=== PATIENT | male | born 1960 | race Caucasian/White ===

== ENCOUNTER 2016-08-20 12:56 | Outpatient (CLI) | payer BC | END 2016-08-20 12:57 | disposition home or self-care (01) | DX: E78.5 Hyperlipidemia, unspecified (principal); E55.9 Vitamin D deficiency, unspecified; Z12.5 Encounter for screening for malignant neoplasm of prostate ==

== ENCOUNTER 2016-08-25 11:03 | Outpatient (CLI) | payer BC | END 2016-08-25 11:04 | DX: E78.5 Hyperlipidemia, unspecified (principal); E55.9 Vitamin D deficiency, unspecified; Z12.5 Encounter for screening for malignant neoplasm of prostate; M79.1 Myalgia ==

== ENCOUNTER 2017-04-20 11:37 | Outpatient (CLI) | payer BC ==
[2017-04-20 18:22] LABS: BILIRUBIN,TOTAL 0.7 mg/dL (0.2-1.0); BUN - BLOOD UREA NITROGEN 18 mg/dL (6-20); CALCIUM 9.2 mg/dL (8.5-10.3); CARBON DIOXIDE - CO2 25 mmol/L (21-32); CHLORIDE 106 mmol/L (101-111); CHOL/HDL RATIO 4.7 (<5.0); CHOLESTEROL 142 mg/dL; CREATININE 0.9 mg/dL (0.6-1.2); GFR - MDRD 87 (>89); GLUCOSE 100 mg/dL (70-100); HDL CHOLESTEROL 30 mg/dL; LDL/HDL RATIO 2.5 (<3.6); POTASSIUM 4.2 mmol/L (3.5-5.0); SODIUM 139 mmol/L (135-145); TOTAL PROTEIN 7.4 g/dL (6.7-8.2); TRIGLYCERIDES 178 mg/dL; VLDL CHOLESTEROL 36 mg/dL
== END 2017-04-20 11:38 | disposition home or self-care (01) ==
LOC: LAB.F 11:37
PROVIDERS: ATTEND Physician Assistant Medical
DX: E78.00 Pure hypercholesterolemia, unspecified (principal); E55.9 Vitamin D deficiency, unspecified; Z51.81 Encounter for therapeutic drug level monitoring; Z79.899 Other long term (current) drug therapy
CPT/HCPCS: 36415; 80053; 80061; 82306

== ENCOUNTER 2017-04-22 16:40 | Outpatient (CLI) | payer BC ==
[2017-04-22 18:44] LABS: BILIRUBIN,URINE NEGATIVE (NEGATIVE); PH,URINE 5.5 PH (5.0-7.5)
[2017-04-22 19:00] LABS: UR CULTURE IF IND INDICATED
== END 2017-04-22 16:41 | disposition home or self-care (01) ==
LOC: LAB.R 16:40
PROVIDERS: ATTEND Physician Assistant Medical
DX: R31.9 Hematuria, unspecified (principal); N39.0 Urinary tract infection, site not specified
CPT/HCPCS: 81001; 87086

== ENCOUNTER 2017-04-26 12:47 | Outpatient (CLI) | payer BC | END 2017-04-26 12:48 | disposition home or self-care (01) | LOC: LAB.F 12:47 | PROVIDERS: ATTEND Physician Assistant Medical | DX: R31.9 Hematuria, unspecified (principal); N39.0 Urinary tract infection, site not specified; Z12.5 Encounter for screening for malignant neoplasm of prostate | CPT/HCPCS: 36415; 81001; 84153; 87086 ==

== ENCOUNTER 2017-05-05 19:15 | Outpatient (CLI) | payer BC ==
[2017-05-05 19:29] LABS: BILIRUBIN,URINE NEGATIVE (NEGATIVE); GLUCOSE, URINE (UA) NEGATIVE (NEGATIVE); KETONES,URINE (UA) NEGATIVE (NEGATIVE); LEUKOCYTE ESTERASE, URINE NEGATIVE (NEGATIVE); NITRITE,URINE NEGATIVE (NEGATIVE); OCCULT BLOOD,URINE NEGATIVE (NEGATIVE); PROTEIN,URINE NEGATIVE (NEGATIVE); UROBILINOGEN,URINE 0.2 (NORMAL) E.U./dL (NORMAL)
[2017-05-05 19:45] LABS: AMORPHOUS SEDIMENT,UR Marked /LPF; BACTERIA,URINE Rare /HPF (None Seen); CLARITY,URINE CLOUDY (CLEAR); MUCUS,URINE Marked Strands; RBC,URINE 0-5 /HPF (0-5); SQUAMOUS EPITHELIAL CELL,UR FEW Squamous (<= Few)
== END 2017-05-05 19:16 | disposition home or self-care (01) ==
LOC: LAB.R 19:15
PROVIDERS: ATTEND Physician Assistant Medical
DX: N39.0 Urinary tract infection, site not specified (principal)
CPT/HCPCS: 81001; 87086

== ENCOUNTER 2017-05-06 12:58 | Outpatient (CLI) | payer BC ==
[2017-05-06 18:57] LABS: PSA FREE 0.643 ng/mL (0.16-2.81)
[2017-05-06 18:58] LABS: PSA TOTAL 4.344 ng/mL (0.000-2.000)
== END 2017-05-06 12:59 | disposition home or self-care (01) ==
LOC: LAB.F 12:58
PROVIDERS: ATTEND Physician Assistant Medical
DX: N39.0 Urinary tract infection, site not specified (principal); R97.20 Elevated prostate specific antigen [PSA]
CPT/HCPCS: 36415; 84154

== ENCOUNTER 2018-04-05 16:13 | Outpatient (CLI) | payer BC ==
--- NOTE | 2018-04-05 17:07 | XRAY Report ---
Reason: BACK PAIN, NICOTINE ADDICTION, ABD BLOATING, NAUSE Procedure Date: 04/05/2018 Accession Number: [id number] / [id number] Procedure: XR - Chest 2 View X-Ray CPT Code: 92385 FULL RESULT: EXAM: CHEST RADIOGRAPHY EXAM DATE: 04/05/2018 04:39 PM. CLINICAL HISTORY: BACK PAIN, NICOTINE ADDICTION, abdomen BLOATING, NAUSEA. COMPARISON: CHEST 2 VIEW PA/LAT 11/26/2015 11:56 AM. TECHNIQUE: 2 views. FINDINGS: Lungs/Pleura: No focal opacities evident. No pleural effusion. No pneumothorax. Normal volumes. Mediastinum: Heart and mediastinal contours are unremarkable. Other: Mild vertebral body anterior wedging in the mid T-spine, appears chronic. IMPRESSION: No acute cardiopulmonary disease seen. RADIA
--- NOTE | 2018-04-05 17:32 | XRAY Report ---
Reason: BACK PAIN Procedure Date: 04/05/2018 Accession Number: [id number] / [id number] Procedure: XR - Thoracic Spine 3 View CPT Code: FULL RESULT: EXAM: THORACIC SPINE RADIOGRAPHY EXAM DATE: 04/05/2018 05:17 PM. CLINICAL HISTORY: BACK PAIN. COMPARISON: CHEST 2 VIEW 04/05/2018 4:19 PM CHEST 2 VIEW PA/LAT 11/26/2015 11:56 AM. TECHNIQUE: 3 views. FINDINGS: Alignment: Normal. No spondylolisthesis or scoliosis. Bones: Mild anterior wedging is noted at multiple contiguous levels in the mid thoracic spine. However, these appear chronic. No acute fracture identified. Disks: Multi level degenerative disk disease is noted. Most severe disease is at mid thoracic spine. Soft Tissues: Normal. The visualized lungs and cardiomediastinal silhouette are normal. IMPRESSION: 1. Multiple levels of anterior wedging in the mid thoracic spine unchanged since the prior radiograph. No acute fracture. 2. Mild multilevel degenerative disk disease noted. RADIA
--- NOTE | 2018-04-05 17:45 | XRAY Report ---
Reason: BACK PAIN, NICOTINE ADDICTION, ABD BLOATING, NAUSE Procedure Date: 04/05/2018 Accession Number: [id number] / [id number] Procedure: XR - Abdomen 2 View X-Ray CPT Code: 84552 FULL RESULT: EXAM: ABDOMEN RADIOGRAPHY EXAM DATE: 04/05/2018 05:17 PM. CLINICAL HISTORY: Abdominal bloating and nausea. COMPARISON: None. TECHNIQUE: 2 views. FINDINGS: Lung Bases: Unremarkable. Bowel Gas Pattern: Within normal limits. No dilated loops or abnormal fluid levels. Free Air: None. Other: None. IMPRESSION: Nonobstructive bowel gas pattern. RADIA The above findings were discussed with Michelle Healy by Dr. Marlyn Torres at 17:44 hrs on 04/05/18.
== END 2018-04-05 16:14 | disposition home or self-care (01) ==
LOC: DI 16:13
PROVIDERS: ATTEND Registered Nurse
DX: M51.34 Other intervertebral disc degeneration, thoracic region (principal); M48.54XA Collapsed vertebra, not elsewhere classified, thoracic region, initial encounter for fracture; R14.0 Abdominal distension (gaseous); R11.0 Nausea; R53.83 Other fatigue; F17.200 Nicotine dependence, unspecified, uncomplicated; R97.20 Elevated prostate specific antigen [PSA]
CPT/HCPCS: 36415; 71046; 72072; 74019; 80053; 80061; 83036; 84153; 84443; 85025; 86140

== ENCOUNTER 2018-04-05 17:29 | Outpatient (CLI) | payer BC ==
[2018-04-05 17:54] LABS: BASOPHILS # (AUTO) 0.1 10^3/uL (0.0-0.1); BASOPHILS % (AUTO) 0.8 %; EOSINOPHILS % (AUTO) 0.4 %; HGB - HEMOGLOBIN 16.2 g/dL (14.0-18.0); LYMPHOCYTES # (AUTO) 2.1 10^3/uL (1.5-3.5); MEAN CORPUSCULAR HGB CONC 34.1 g/dL (32.0-36.0); MEAN CORPUSCULAR VOLUME 90.9 fL (80.0-94.0); MONOCYTES # (AUTO) 0.7 10^3/uL (0.0-1.0); MONOCYTES % (AUTO) 6.9 %; NEUTROPHILS # (AUTO) 7.2 10^3/uL (1.5-6.6); NEUTROPHILS % (AUTO) 70.9 %; PLT - PLATELET COUNT 272 10^3/uL (130-450); RED BLOOD COUNT 5.22 10^6/uL (4.70-6.10); RED CELL DISTRIBUTION WIDTH 14.7 % (12.0-15.0); WHITE BLOOD COUNT 10.2 x10^3/uL (4.8-10.8)
[2018-04-05 18:36] LABS: ALBUMIN 4.6 g/dL (3.2-5.5); ALBUMIN/GLOBULIN RATIO 1.4 (1.0-2.2); ALKALINE PHOSPHATASE 101 IU/L (42-121); ALT ALANINE AMINOTRANSFERASE 40 IU/L (10-60); AST ASPARTATE AMINOTRANSFERASE 29 IU/L (10-42); BILIRUBIN,TOTAL 1.6 mg/dL (0.2-1.0); BUN - BLOOD UREA NITROGEN 17 mg/dL (6-20); CALCIUM 9.4 mg/dL (8.5-10.3); CARBON DIOXIDE - CO2 25 mmol/L (21-32); CHLORIDE 103 mmol/L (101-111); CHOL/HDL RATIO 4.2 (<5.0); CHOLESTEROL 176 mg/dL; CREATININE 0.9 mg/dL (0.6-1.2); GFR - MDRD 86 (>89); GLUCOSE 100 mg/dL (70-100); HDL CHOLESTEROL 42 mg/dL; LDL CHOLESTEROL,CALCULATED 95 mg/dL; LDL/HDL RATIO 2.3 (<3.6); SODIUM 136 mmol/L (135-145); VLDL CHOLESTEROL 39 mg/dL
[2018-04-05 18:42] LABS: CRP - C-REACTIVE PROTEIN < 1.0 mg/dL (0-1.0)
[2018-04-05 19:11] LABS: HB2 TOTAL 17.5 g/dL; HEMOGLOBIN A1C 0.71 g/dL; HEMOGLOBIN A1C % 5.9 % (4.6-6.2)
== END 2018-04-05 17:30 | disposition home or self-care (01) ==
LOC: LAB 17:29
PROVIDERS: ATTEND Registered Nurse
DX: R97.20 Elevated prostate specific antigen [PSA] (principal); R53.83 Other fatigue
CPT/HCPCS: 36415; 80053; 80061; 83036; 83721; 84153; 84443; 85025; 86140

== ENCOUNTER 2019-06-01 09:28 | Emergency (ER) | payer BC ==
--- NOTE | 2019-06-01 10:17 | ED Physician Documentation ---
PD HPI ABD PAIN - Stated complaint Stated Complaint: ABD/BACK PX - Chief complaint Chief Complaint: Abd Pain - History obtained from History obtained from: Patient - History of Present Illness Timing - onset: How many days ago (He states he has had difficulty with constipation for the past month with regular use of a stool softener daily but still only small stools at a time. He states he been having some abdominal bloating and distention and some crampy pains in the lower abdomen the last few days radiating into the back. He does have some back pain as well which increases on range of motion. He denies any decrease sensation in the rectal or bladder area penal area. He denies any weakness of the legs. He denies any swelling of the legs. He had increased pain significantly today in the lower abdomen and is here for evaluation. He had had just a small amount of watery stool out but still has a feeling of rectal urgency.) Quality: Cramping, Aching, Pain Location: Periumbilical, LLQ Radiation: Lower back Improved by: Laying still Worsened by: Moving, Palpation Associated symptoms: Nausea, Constipation. No: Fever, Vomiting, Diarrhea, Melena Similar symptoms before: Has not had sx before (History of constipation at times but has not had pain like this from it previously.) Recently seen: Not recently seen Review of Systems Constitutional: denies: Fever, Chills Nose: denies: Rhinorrhea / runny nose, Congestion Throat: denies: Sore throat Cardiac: denies: Chest pain / pressure, Palpitations Respiratory: denies: Cough GI: reports: Abdominal Pain, Nausea, Constipation. denies: Vomiting, Diarrhea, Bloody / black stool : denies: Dysuria, Frequency, Unable to Void, Incontinent Skin: denies: Rash, Lesions Musculoskeletal: reports: Back pain (lower back, worse with movement.). denies: Neck pain Neurologic: denies: Focal weakness, Numbness PD PAST MEDICAL HISTORY - Past Medical History Cardiovascular: High cholesterol Neuro: None Endocrine/Autoimmune: None Musculoskeletal: Chronic back pain - Past Surgical History Past Surgical History: No - Present Medications Home Medications: Ambulatory Orders Medication Instructions Recorded Confirmed Atorvastatin Calcium [Lipitor] 40 mg DAILY 11/07/15 11/07/15 Cyclobenzaprine [Flexeril] 10 mg PO TID PRN #20 tablet 11/07/15 HYDROcod/ACETAM 5/325 [[place] 5/325] 1 - 2 ea PO Q6H PRN #20 tablet 11/07/15 Hydrocodone/Acetaminophen [[place] 1 each PO Q6H PRN #12 tablet 06/01/19 5-325 Tablet] Naproxen 500 mg PO BID #20 tablet 06/01/19 Polyethylene Glycol 3350 [Miralax] 17 gm PO DAILY PRN #1 bottle 06/01/19 Tizanidine HCl 4 mg PO TID PRN #25 capsule 06/01/19 - Allergies Allergies/Adverse Reactions: Allergies Allergy/AdvReac Type Severity Reaction Status Date / Time No Known Drug Allergies Allergy Verified 06/01/19 09:34 - Living Situation Living Situation: reports: Alone Living Arrangement: reports: At home - Social History Does the pt smoke?: Yes Smoking Status: Current every day smoker Does the pt drink ETOH?: No Does the pt have substance abuse?: No - Immunizations Immunizations are current?: Yes PD ED PE NORMAL - Vitals Vital signs reviewed: Yes - General General: Alert and oriented X 3, Well developed/nourished, Other (Appears uncomfortable. He does have abdominal distention mostly in the lower abdomen. General tenderness in the lower abdomen without any percussion or rebound. The epigastric area and right upper quadrant themselves are not tender. Bowel sounds are present and diminished. Rectal exam was with out any impaction at the rectal vault.) - HEENT HEENT: Pharynx benign - Neck Neck: Supple, no meningeal sign, No adenopathy - Cardiac Cardiac: RRR, No murmur - Respiratory Respiratory: Clear bilaterally - Abdomen Abdomen: No organomegaly. No: Normal bowel sounds - Male Male : Deferred - Rectal Rectal: Other (No impaction noted. Stool is brown colored without blood nor melena. ) - Back Back: No CVA TTP, No spinal TTP - Derm Derm: Normal color, Warm and dry - Neuro Neuro: Alert and oriented X 3, No motor deficit, No sensory deficit (He has normal sensation in both lower extremities to touch and pinprick. Normal knee reflexes. Normal sensation is noted at the rectal area with good rectal tone.) Results - Vitals Vitals: Vital Signs - 24 hr 06/01/19 06/01/19 06/01/19 09:32 11:20 13:00 Temperature 36.1 C L 36.5 C Heart Rate 88 73 75 Respiratory 16 19 16 Rate Blood Pressure 149/100 H 140/88 H 149/93 H O2 Saturation 100 97 100 06/01/19 15:07 Temperature Heart Rate 62 Respiratory 20 Rate Blood Pressure 141/93 H O2 Saturation 98 Oxygen O2 Source Room air - Labs Labs: Laboratory Tests 06/01/19 06/01/19 06/01/19 10:05 10:05 10:50 WBC 7.2 RBC 5.31 Hgb 16.8 Hct 48.0 MCV 90.4 MCH 31.6 H MCHC 35.0 RDW 14.0 Plt Count 268 MPV 8.4 Neut # (Auto) 4.6 Lymph # (Auto) 1.9 [place] # (Auto) 0.5 Eos # (Auto) 0.1 Baso # (Auto) 0.0 Absolute Nucleated RBC 0.00 Nucleated RBC % 0.0 Sodium 135 Potassium 3.9 Chloride 101 Carbon Dioxide 20 L Anion Gap 14.0 H BUN 18 Creatinine 1.2 Estimated GFR (MDRD) 62 L Glucose 109 H Lactic Acid Calcium 9.7 Magnesium 1.9 Total Bilirubin 1.7 H AST 38 ALT 72 H Alkaline Phosphatase 83 Total Protein 7.7 Albumin 4.3 Globulin 3.4 Albumin/Globulin Ratio 1.3 Lipase 42 Urine Color Urine Clarity Urine pH Ur Specific [place] Urine Protein Urine Glucose (UA) Urine Ketones Urine Occult Blood Urine Nitrite Urine Bilirubin Urine Urobilinogen Ur Leukocyte Esterase Ur Microscopic Review Urine Culture Comments 06/01/19 06/01/19 11:24 11:32 WBC RBC Hgb Hct MCV MCH MCHC RDW Plt Count MPV Neut # (Auto) Lymph # (Auto) [place] # (Auto) Eos # (Auto) Baso # (Auto) Absolute Nucleated RBC Nucleated RBC % Sodium Potassium Chloride Carbon Dioxide Anion Gap BUN Creatinine Estimated GFR (MDRD) Glucose Lactic Acid 1.7 Calcium Magnesium Total Bilirubin AST ALT Alkaline Phosphatase Total Protein Albumin Globulin Albumin/Globulin Ratio Lipase Urine Color YELLOW Urine Clarity CLEAR Urine pH 6.0 Ur Specific [place] 1.025 Urine Protein NEGATIVE Urine Glucose (UA) NEGATIVE Urine Ketones 15 H Urine Occult Blood TRACE-LYSE Urine Nitrite NEGATIVE Urine Bilirubin NEGATIVE Urine Urobilinogen 0.2 (NORMAL) Ur Leukocyte Esterase NEGATIVE Ur Microscopic Review NOT INDICATED Urine Culture Comments NOT INDICATED - Rads (name of study) abd CT Radiology: Prelim report reviewed (No acute abnormality is seen on the CT scan to account for his pain.), See rad report PD MEDICAL DECISION MAKING - ED course Complexity details: reviewed results (No obvious acute process is seen on CT scan and his labs are normal with just an elevated white count. No obvious source of infection. He had does have a history of constipation clinically though the CT scan does not look like a excessive amount of stool. We can give a enema as well as some MiraLAX for him. His pain is improved with some IV fluids and medications. I do not see a serious cause for his pain and distention and will presume it related to some obstipation given the normal testing at this point. He has been having back pain but there is no redness to it. He has normal rectal tone and normal sensation in the saddle area as well as the lower extremities.), re-evaluated patient (No significant abnormalities found on labs or CT scan. We will send him home with some anti-inflammatories and can use MiraLAX every 1 or 2 hours through the day until stool output. I would assume his cramps and distention will improve with that as there is no other obvious cause for it at this time. Ibuprofen and muscle relaxant for the back pain as it does seem to be some musculoskeletal component for the back. There is no fever, neurologic deficit or decreased sensation notable so I do not feel there is an issue with cord compression.), considered differential (Consider processes such as diverticulitis or appendicitis or bowel obstruction perforation or vascular problem. Will get labs urine test and CT scan. Meanwhile we will give IV fluids and antibiotics. Rectal exam did not show any significant impaction. We can try an enema regarding the constipation.), d/w patient Departure - Departure Disposition: Home, Self Care Clinical Impression: Lower abdominal pain Lower back pain Qualifiers: Chronicity: acute Back pain laterality: unspecified Sciatica presence: without sciatica Qualified Code(s): M54.5 - Low back pain Constipation Qualifiers: Constipation type: unspecified constipation type Qualified Code(s): K59.00 - Constipation, unspecified Condition: Stable Record reviewed to determine appropriate education?: Yes Instructions: ED Low Back Pain Injury, ED Constipation Follow-Up: Michelle Healy ARNP [Primary Care Provider] - Prescriptions: Hydrocodone/Acetaminophen [[place] 5-325 Tablet] 1 each PO Q6H PRN #12 tablet PRN Reason: Pain Naproxen 500 mg PO BID #20 tablet Polyethylene Glycol 3350 [Miralax] 17 gm PO DAILY PRN #1 bottle PRN Reason: Constipation Tizanidine HCl 4 mg PO TID PRN #25 capsule PRN Reason: Spasms Comments: No signs of significant cause or dangerous cause for your pains. There may be some musculoskeletal pain in the back. Presume the abdominal pain and distention are from some constipation effect. Stay well-hydrated. Use the MiraLAX 17 g dose every 1 or 2 hours through the day until you are having a good stool output and then use it daily after that. Naproxen anti-inflammatory twice daily for the next 7 to 10 days for pain and inflammation. Add tizanidine muscle relaxant as needed for back pain. Add Tylenol to this to help with the pain as well. These should not be constipating. If still needed, add hydrocodone for pain. The concern is this would would add to some constipation so would be added just if needed. Follow-up with your primary care next week, call for an appointment. Follow-up with here or return here if worsening or not improved over the next few days. Discharge Date/Time: 06/01/19 15:26
[2019-06-01 10:21] LABS: BASOPHILS % (AUTO) 0.6 %; EOSINOPHILS # (AUTO) 0.1 10^3/uL (0.0-0.7); EOSINOPHILS % (AUTO) 0.8 %; HGB - HEMOGLOBIN 16.8 g/dL (14.0-18.0); LYMPHOCYTES # (AUTO) 1.9 10^3/uL (1.5-3.5); LYMPHOCYTES % (AUTO) 26.4 %; MEAN CORPUSCULAR HEMOGLOBIN 31.6 pg (27.0-31.0); MEAN CORPUSCULAR VOLUME 90.4 fL (80.0-94.0); MEAN PLATELET VOLUME 8.4 fL (7.4-11.4); MONOCYTES # (AUTO) 0.5 10^3/uL (0.0-1.0); MONOCYTES % (AUTO) 7.3 %; NEUTROPHILS # (AUTO) 4.6 10^3/uL (1.5-6.6); NEUTROPHILS % (AUTO) 64.6 %; PLT - PLATELET COUNT 268 10^3/uL (130-450); RED BLOOD COUNT 5.31 10^6/uL (4.70-6.10); WHITE BLOOD COUNT 7.2 x10^3/uL (4.8-10.8)
[2019-06-01 10:28] LABS: ALBUMIN 4.3 g/dL (3.2-5.5); ALBUMIN/GLOBULIN RATIO 1.3 (1.0-2.2); BILIRUBIN,TOTAL 1.7 mg/dL (0.2-1.0); CALCIUM 9.7 mg/dL (8.5-10.3); CREATININE 1.2 mg/dL (0.6-1.2); TOTAL PROTEIN 7.7 g/dL (6.7-8.2)
[2019-06-01] MEDS ORDERED: SODIUM CHLORIDE 0.9% 1,000 ML IV ONE (10:48)
[2019-06-01] MEDS ORDERED: HYDROmorphone 1 MG/ML CARPUJECT IVP STA (10:48)
[2019-06-01] MEDS ORDERED: ONDANSETRON 4 MG/2 ML VIAL IVP STA (10:48)
[2019-06-01] MEDS ORDERED: ACETAMINOPHEN 1,000 MG/100 ML 100 ML IV STA (10:50)
[2019-06-01] MEDS ORDERED: IOVERSOL 320 100 ML VIAL IVP ONE ×2 (11:16→12:29)
[2019-06-01 11:29] LABS: BILIRUBIN,URINE NEGATIVE (NEGATIVE); GLUCOSE, URINE (UA) NEGATIVE (NEGATIVE); KETONES,URINE (UA) 15 mg/dL (NEGATIVE); LEUKOCYTE ESTERASE, URINE NEGATIVE (NEGATIVE); NITRITE,URINE NEGATIVE (NEGATIVE); OCCULT BLOOD,URINE TRACE-LYSE (NEGATIVE); PROTEIN,URINE NEGATIVE (NEGATIVE); UROBILINOGEN,URINE 0.2 (NORMAL) E.U./dL (NORMAL)
[2019-06-01 11:31] LABS: CLARITY,URINE CLEAR (CLEAR)
--- NOTE | 2019-06-01 12:27 | CT Report ---
Reason: lower abd pain and distension Procedure Date: 06/01/2019 Accession Number: [id number] / [id number] Procedure: CT - Abdomen/Pelvis W CPT Code: Final Report FULL RESULT: EXAM: CT ABDOMEN AND PELVIS EXAM DATE: 06/01/2019 12:03 PM. CLINICAL HISTORY: Lower abdominal pain and distension. COMPARISONS: None. TECHNIQUE: Routine helical CT imaging was performed through the abdomen and pelvis. IV contrast: Optiray 320 90 mL. Enteric contrast: No. Reconstructions: Coronal and sagittal. In accordance with CT protocol optimization, one or more of the following dose reduction techniques were utilized for this exam: automated exposure control, adjustment of mA and/or KV based on patient size, or use of iterative reconstructive technique. FINDINGS: Lung Bases: Minimal posterior bibasilar subpleural atelectasis. Heart size normal. Tiny hiatal hernia. Liver: Normal. No masses. Gallbladder/Bile Ducts: Along the fundus of the gallbladder is a focus of round thickening and nodularity typically seen with adenomyomatosis. Remainder of the gallbladder is unremarkable. No biliary ductal dilatation. Spleen: Normal. Pancreas: Extensive irregular calcifications are seen in the pancreatic head and uncinate process. No pancreatic ductal dilatation. No peripancreatic edema or fluid collections. Adrenal Glands: Normal. Kidneys: Normal. No masses or hydronephrosis. Peritoneal Cavity/Bowel: Stomach is mildly distended and unremarkable. No small bowel obstruction or small bowel wall thickening. Small fatty umbilical hernia. No free air. No free fluid. No enlarged retroperitoneal or mesenteric lymph nodes. Small volume of stool in the colon. Diverticula are seen in the distal colon. No evidence of diverticulitis. The appendix is well visualized and normal. Pelvic Organs: Urinary bladder is mildly distended . There is an area of asymmetric thickening along the left posterior urinary bladder measuring up to 13 mm which is asymmetric in comparison to the right by the left UVJ. Prostate gland is mildly enlarged. No pelvic adenopathy. No pelvic free fluid. Vasculature: Calcified and noncalcified atheromatous plaque is seen in the abdominal aorta. SMA and celiac and MURIEL are patent. No occlusion. No aneurysm. Bones: No acute osseous abnormalities. Mild degenerative changes at L5-S1. Lumbar facet arthropathy. Other: None. IMPRESSION: 1. Normal appendix. 2. Distal colonic diverticulosis. No diverticulitis. No bowel obstruction. 3. No nephrolithiasis. No hydronephrosis. 4. Asymmetric thickening along the posterior inferior left urinary bladder measuring up to 13 mm by the left UVJ. Findings may resent a focal bladder lesion. Cystoscopy recommended. 5. Pancreatic head and uncinate process calcifications consistent with changes related to chronic pancreatitis. No CT evidence of acute pancreatitis. 6. Atherosclerosis. RADIA
[2019-06-01] MEDS ORDERED: MINERAL OIL ENEMA 133 ML BOTTLE RC STA (13:09)
[2019-06-01] MEDS ORDERED: polyethylene glycoL 3350 17 GM PACKET PO STA (13:09)
[2019-06-01] MEDS ORDERED: KETOROLAC 15 MG/ML VIAL IVP STA (13:13)
[2019-06-01 15:07] VITALS: BP 141/93
== END 2019-06-01 15:26 | disposition home or self-care (01) ==
LOC: ED 09:28
DX: R10.30 Lower abdominal pain, unspecified (principal); K59.00 Constipation, unspecified; M54.5 Low back pain; R93.41 Abnormal radiologic findings on diagnostic imaging of renal pelvis, ureter, or bladder; F17.200 Nicotine dependence, unspecified, uncomplicated
CPT/HCPCS: 36415; 51798; 74177; 80053; 81003; 83605; 83690; 83735; 85025; 96365; 96375; 99284; 99285; A9270; J0131; J1170; Q9967; 81001; 87086

== ENCOUNTER 2019-06-06 12:55 | Outpatient (CLI) | payer BC ==
[2019-06-06 18:44] LABS: ALBUMIN 4.4 g/dL (3.2-5.5); ALBUMIN/GLOBULIN RATIO 1.7 (1.0-2.2); ALKALINE PHOSPHATASE 74 IU/L (42-121); ALT ALANINE AMINOTRANSFERASE 41 IU/L (10-60); AST ASPARTATE AMINOTRANSFERASE 29 IU/L (10-42); BUN - BLOOD UREA NITROGEN 20 mg/dL (6-20); CALCIUM 9.2 mg/dL (8.5-10.3); CARBON DIOXIDE - CO2 25 mmol/L (21-32); CHLORIDE 104 mmol/L (101-111); CHOL/HDL RATIO 6.4 (<5.0); CHOLESTEROL 235 mg/dL; CREATININE 1.1 mg/dL (0.6-1.2); GFR - MDRD 68 (>89); GLUCOSE 94 mg/dL (70-100); HDL CHOLESTEROL 37 mg/dL; LDL CHOLESTEROL,CALCULATED 138 mg/dL; LDL/HDL RATIO 3.7 (<3.6); SODIUM 136 mmol/L (135-145); VLDL CHOLESTEROL 60 mg/dL
== END 2019-06-06 12:56 | disposition home or self-care (01) ==
LOC: LAB.S 12:55
PROVIDERS: ATTEND Internal Medicine
DX: E78.5 Hyperlipidemia, unspecified (principal)
CPT/HCPCS: 36415; 80053; 80061; 83721

== ENCOUNTER 2022-06-09 16:39 | Emergency (ER) | payer BC ==
[2022-06-09 16:53] VITALS: BP 161/95
[2022-06-09 17:13] LABS: BASOPHILS # (AUTO) 0.1 10^3/uL (0.0-0.1); BASOPHILS % (AUTO) 0.4 %; EOSINOPHILS # (AUTO) 0.1 10^3/uL (0.0-0.7); EOSINOPHILS % (AUTO) 0.9 %; HCT - HEMATOCRIT 47.9 % (42.0-52.0); LYMPHOCYTES # (AUTO) 1.5 10^3/uL (1.5-3.5); LYMPHOCYTES % (AUTO) 13.6 %; MEAN CORPUSCULAR HEMOGLOBIN 30.3 pg (27.0-31.0); MEAN CORPUSCULAR HGB CONC 33.4 g/dL (32.0-36.0); MEAN CORPUSCULAR VOLUME 90.7 fL (80.0-94.0); MONOCYTES # (AUTO) 0.7 10^3/uL (0.0-1.0); MONOCYTES % (AUTO) 6.3 %; NEUTROPHILS # (AUTO) 8.8 10^3/uL (1.5-6.6); NEUTROPHILS % (AUTO) 78.5 %; PLT - PLATELET COUNT 243 10^3/uL (130-450); RED BLOOD COUNT 5.28 10^6/uL (4.70-6.10); RED CELL DISTRIBUTION WIDTH 14.3 % (12.0-15.0); WHITE BLOOD COUNT 11.2 x10^3/uL (4.8-10.8)
--- NOTE | 2022-06-09 17:13 | ED Physician Documentation ---
History of Present Illness - Stated complaint Stated Complaint: RT LEG PX - Chief complaint Chief Complaint: Ext Problem - Additonal information Additional information: 61-year-old male presents emergency department for evaluation of acute onset right lower extremity leg pain and cyanosis. He reports that for 6 months he has had pain in the bottom of his foot that he attributed to Planter fasciitis. About 230 he developed sudden sharp searing pain that radiates up towards his thigh. His foot became cold. His foot also became dusky. He lost pulses in this foot but not sensation. He denies taking any prescribed medications. He is 1/2 pack/day smoker. He is denying chest pain or shortness of air. No abdominal pain. No melena or hematochezia Review of Systems Cardiac: reports: Other (Loss of pulses right foot) Skin: reports: Reviewed and negative Musculoskeletal: reports: Extremity pain PD PAST MEDICAL HISTORY - Past Medical History Cardiovascular: High cholesterol Neuro: None Endocrine/Autoimmune: None Musculoskeletal: Chronic back pain - Past Surgical History Past Surgical History: No - Present Medications Home Medications: Ambulatory Orders Medication Instructions Recorded Confirmed Atorvastatin Calcium [Lipitor] 40 mg DAILY 11/07/15 11/07/15 Cyclobenzaprine [Flexeril] 10 mg PO TID PRN #20 tablet 11/07/15 HYDROcod/ACETAM 5/325 [[place] 5/325] 1 - 2 ea PO Q6H PRN #20 tablet 11/07/15 Hydrocodone/Acetaminophen [[place] 1 each PO Q6H PRN #12 tablet 06/01/19 5-325 Tablet] Naproxen 500 mg PO BID #20 tablet 06/01/19 Tizanidine HCl 4 mg PO TID PRN #25 capsule 06/01/19 polyethylene glycoL 3350 [Miralax] 17 gm PO DAILY PRN #1 bottle 06/01/19 - Allergies Allergies/Adverse Reactions: Allergies Allergy/AdvReac Type Severity Reaction Status Date / Time No Known Drug Allergies Allergy Verified 06/09/22 16:53 - Social History Does the pt smoke?: Yes Smoking Status: Current every day smoker Does the pt drink ETOH?: No Does the pt have substance abuse?: No - Immunizations Immunizations are current?: Yes PD ED PE NORMAL - General General: Alert and oriented X 3, No acute distress, Well developed/nourished - Cardiac Cardiac: RRR (NSR on monitor), No murmur, Other (2+ femoral pulses bilaterally. Right foot appears dusky and cyanotic. It is cold to touch at the level of the ankle distally. Unable to palpate or obtain Doppler pulses in the DP or posterior tibial region. Patient has normal sensation and movement of this foot.). No: Strong equal pulses (Left leg with 2+ femoral and 2+ DP pulse. Warm extremity. Normal movement. Normal sensation.) - Respiratory Respiratory: No respiratory distress, Clear bilaterally - Abdomen Abdomen: Normal bowel sounds, Soft Results - Vitals Vitals: Vital Signs - 24 hr 06/09/22 06/09/22 16:47 17:20 Temperature 37 C Heart Rate 98 92 Respiratory 17 24 Rate Blood Pressure 161/95 H O2 Saturation 99 96 Oxygen O2 Source Room air - EKG (time done) 1823 Rate: Rate (enter#) (92) Rhythm: NSR [place]: Normal Intervals: Normal LA QRS: Normal Ischemia: Normal ST segments Compare to prior EKG: Old EKG unavailable Computer interpretation: Agree with computer - Labs Labs: Laboratory Tests 06/09/22 06/09/22 06/09/22 17:06 17:06 17:06 WBC 11.2 H RBC 5.28 Hgb 16.0 Hct 47.9 MCV 90.7 MCH 30.3 MCHC 33.4 RDW 14.3 Plt Count 243 MPV 8.0 Neut # (Auto) 8.8 H Lymph # (Auto) 1.5 [place] # (Auto) 0.7 Eos # (Auto) 0.1 Baso # (Auto) 0.1 Absolute Nucleated RBC 0.00 Nucleated RBC % 0.0 PT 11.1 INR 1.0 APTT 28.4 Sodium 137 Potassium 4.0 Chloride 101 Carbon Dioxide 20 L Anion Gap 16.0 H BUN 31 H Creatinine 1.2 Estimated GFR (MDRD) 61 L Glucose 119 H Calcium 10.3 Total Bilirubin 1.1 H AST 22 ALT 30 Alkaline Phosphatase 83 Total Protein 7.6 Albumin 4.2 Globulin 3.4 Albumin/Globulin Ratio 1.2 Lipase 41 SARS-CoV-2 (PCR) 06/09/22 17:06 WBC RBC Hgb Hct MCV MCH MCHC RDW Plt Count MPV Neut # (Auto) Lymph # (Auto) [place] # (Auto) Eos # (Auto) Baso # (Auto) Absolute Nucleated RBC Nucleated RBC % PT INR APTT Sodium Potassium Chloride Carbon Dioxide Anion Gap BUN Creatinine Estimated GFR (MDRD) Glucose Calcium Total Bilirubin AST ALT Alkaline Phosphatase Total Protein Albumin Globulin Albumin/Globulin Ratio Lipase SARS-CoV-2 (PCR) NOT DETECTED - Rads (name of study) Arterial US right leg Radiology: See rad report, Other (Per neurodiagnostic technologist: Occlusion of the common femoral artery.) PD Medical Decision Making - ED course Complexity details: considered differential, d/w patient ED course: 61-year-old male presents to the emergency department for evaluation of acute right lower leg ischemia. He states that at 230 this afternoon he developed sharp pain from the bottom of his foot radiating up towards the thigh. He noticed that the foot had become cold and dusky/cyanotic. On presentation he does have bilateral femoral pulses, however there are NO doppler pulse in the RIGHT foot at either the DP or posterior tibial site. He does have normal sensation and movement, though this foot is cold and cyanotic. unremarkable exam of the LEFT leg with is normal in color, warm and well perfused. I initially ordered CBC, electrolytes, lactate as well as PTT PT and INR. Per my interpretation no acute worrisome findings were seen. Given the concern for acute ischemia heparin infusion with bolus was also initiated. A stat arterial ultrasound was ordered for evaluation of the right lower extremity 1814: I spoken with Dr. Somers vascular surgeon at [facility]. We discussed this case. 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 This finding was discussed with Dr. Somers. Imaging is being pushed to [facility]. However he does accept the patient in transfer. Given the acute limb i schemia he will be flown via life flight. COVID screen is pending. Patient is in agreement for transport. Appropriate [employer] paperwork completed. - Critical Care Time(min): 60 Time Includes: Direct patient care, Reassess patient, Medical consult Data interpretation: Labs Departure - Departure Disposition: 02 Transfer Acute Care Hosp Clinical Impression: Occlusion of right femoral artery
[2022-06-09 17:19] LABS: PT - PROTHROMBIN TIME 11.1 secs (9.9-12.6)
[2022-06-09] MEDS ORDERED: HEPARIN 5,000 UNIT/ML VIAL ONE (17:24)
[2022-06-09 17:26] LABS: ALBUMIN 4.2 g/dL (3.2-5.5); ALBUMIN/GLOBULIN RATIO 1.2 (1.0-2.2); BILIRUBIN,TOTAL 1.1 mg/dL (0.2-1.0); CALCIUM 10.3 mg/dL (8.5-10.3); CREATININE 1.2 mg/dL (0.6-1.2); PARTIAL THROMBOPLASTIN TIME 28.4 secs (24.9-33.3); TOTAL PROTEIN 7.6 g/dL (6.7-8.2)
[2022-06-09] MEDS ORDERED: HYDROmorphone 1 MG/ML CARPUJECT IVP STA (17:51)
[2022-06-09] MEDS ORDERED: SODIUM CHLORIDE 0.9% 1,000 ML IV STA (17:51)
[2022-06-09] MEDS ORDERED: HEPARIN 25000UNITS/500ML (D5W) 25,000 UNIT/500 ML BAG IV SCH (18:00)
--- NOTE | 2022-06-09 18:49 | Ultrasound Report ---
PROCEDURE: Duplex Lwr Ext Arterial RT INDICATIONS: acute occlusion TECHNIQUE: Color and pulse Doppler interrogation was performed of the right lower extremity arterial system, wit h image documentation. COMPARISON: None available FINDINGS: Common femoral artery: Occluded. Deep femoral artery: 15 cm/sec, with monophasic flow. Proximal superficial femoral artery: 31 cm/sec, with monophasic flow. Mid superficial femoral artery: 17 cm/sec, with monophasic flow. Distal superficial femoral artery: 22 cm/sec, with monophasic flow. Popliteal artery: 16 cm/sec, with monophasic flow. Posterior tibial artery: 11 cm/sec, with modified flow. Anterior tibial artery/dorsalis pedis: 10 cm/sec, with monophasic flow. The anterior tibial artery is not seen distally. Tubbs-scale imaging description: Soft thrombus can be seen within the right common femoral artery. At herosclerotic plaque can be seen throughout the superficial femoral artery and popliteal artery. IMPRESSION: Conclusion within the common femoral artery, with soft plaque seen. Poor flow with monophasic waveforms can be seen throughout the remainder of the right lower extremity . Reviewed by: Rahul Montano MD on 06/09/2022 5:48 PM [place] Approved by: Rahul Montano MD on 06/09/2022 5:48 PM [facility] Station ID: [id number]
== END 2022-06-09 19:33 | disposition short-term general hospital (02) ==
LOC: ED 16:39
DX: I70.201 Unspecified atherosclerosis of native arteries of extremities, right leg (principal); F17.200 Nicotine dependence, unspecified, uncomplicated; Z20.822 Contact with and (suspected) exposure to COVID-19
CPT/HCPCS: 36415; 80053; 83690; 85025; 85610; 85730; 87635; 93005; 93926; 96361; 96374; 96375; 99285; 99291; J1170

== ENCOUNTER 2022-06-14 13:37 | Outpatient (CLI) | payer BC | END 2022-06-14 13:38 | disposition home or self-care (01) | LOC: LAB.S 13:37 | PROVIDERS: ATTEND Registered Nurse | DX: I74.3 Embolism and thrombosis of arteries of the lower extremities (principal); Z79.01 Long term (current) use of anticoagulants | CPT/HCPCS: 36416; 85610 ==

== ENCOUNTER 2022-07-07 12:14 | Outpatient (CLI) | payer BC ==
[2022-07-07] MEDS ORDERED: iohexoL-300 100 ML VIAL ONE (12:48)
[2022-07-07] MEDS: DIATRIZOATE MEGLU/DIATRIZO SOD 30 ML BOTTLE PO ONE (15:08)
[2022-07-07] MEDS: iohexoL-300 100 ML VIAL IVP ONE (15:08)
--- NOTE | 2022-07-07 17:28 | CT Report ---
PROCEDURE: ABDOMEN/PELVIS W INDICATIONS: ABD DISTENSION CONTRAST: 100ml OMnipaque 300 TECHNIQUE: After the administration of contrast, 5 mm thick sections acquired from the diaphragms to the symphys is. 5 mm thick coronal and sagittal reformats were acquired. For radiation dose reduction, the foll owing was used: automated exposure control, adjustment of mA and/or kV according to patient size. COMPARISON: CTA abdomen and pelvis dated 06/09/2022. CT IVP dated 06/10/2022. FINDINGS: Image quality: Excellent. ABDOMEN: Lung bases: Lung bases are clear. Heart size is normal. Solid organs: Liver and spleen are normal in size and enhancement. Gallbladder is normal. Biliary system is non dilated. There are calcifications of the head of the pancreas consistent with remote pa ncreatitis. No adrenal nodules. Kidneys demonstrate normal size and enhancement, without hydronephr osis. Peritoneum and bowel: Bowel loops demonstrate normal wall thickness and caliber. There is diverticu losis without evidence of diverticulitis. No free fluid or air. Nodes and vessels: No retroperitoneal or mesenteric adenopathy by size criteria. Aorta and inferior vena cava are normal in size. The aorta has atherosclerotic calcifications with eccentric mural thr ombus distally. There is a 2.5 x 1.4 cm enhancing mass overlying the left ureteral orifice. Miscellaneous: No ventral hernias. PELVIS: Genitourinary: Bladder wall thickness is normal. Miscellaneous: No inguinal hernias or adenopathy. Bones: No suspicious bony lesions. No vertebral body compression fractures. IMPRESSION: 1. 2.5 x 1.4 cm enhancing mass overlying the left ureteral orifice consistent with bladder neoplasm. This appears similar compared to prior CT on 06/10/2022. 2. No acute abnormality of the abdomen or pelvis. 3. No adenopathy or other evidence of metastatic disease. Reviewed by: Harpreet Diamond on 07/07/2022 4:27 PM [facility] Approved by: Harpreet Diamond on 07/07/2022 4:27 PM [facility] Station ID: [id number]
== END 2022-07-07 12:15 | disposition home or self-care (01) ==
LOC: DI 12:14
PROVIDERS: ATTEND Registered Nurse
DX: R19.00 Intra-abdominal and pelvic swelling, mass and lump, unspecified site (principal)
CPT/HCPCS: 74177; Q9963; Q9967

== ENCOUNTER 2022-08-31 12:58 | Outpatient (CLI) | payer BC ==
[2022-08-31 19:53] LABS: BASOPHILS # (AUTO) 0.1 10^3/uL (0.0-0.1); BASOPHILS % (AUTO) 0.7 %; EOSINOPHILS # (AUTO) 0.2 10^3/uL (0.0-0.7); EOSINOPHILS % (AUTO) 2.8 %; HCT - HEMATOCRIT 52.7 % (42.0-52.0); HGB - HEMOGLOBIN 17.1 g/dL (14.0-18.0); LYMPHOCYTES % (AUTO) 27.3 %; MEAN CORPUSCULAR HEMOGLOBIN 29.9 pg (27.0-31.0); MEAN CORPUSCULAR HGB CONC 32.4 g/dL (32.0-36.0); MEAN CORPUSCULAR VOLUME 92.3 fL (80.0-94.0); MEAN PLATELET VOLUME 8.4 fL (7.4-11.4); MONOCYTES # (AUTO) 0.6 10^3/uL (0.0-1.0); MONOCYTES % (AUTO) 8.3 %; NEUTROPHILS # (AUTO) 4.4 10^3/uL (1.5-6.6); NEUTROPHILS % (AUTO) 60.8 %; PLT - PLATELET COUNT 302 10^3/uL (130-450); RED BLOOD COUNT 5.71 10^6/uL (4.70-6.10); RED CELL DISTRIBUTION WIDTH 14.9 % (12.0-15.0); WHITE BLOOD COUNT 7.3 x10^3/uL (4.8-10.8)
[2022-08-31 20:13] LABS: ALBUMIN 3.9 g/dL (3.2-5.5); ALBUMIN/GLOBULIN RATIO 1.2 (1.0-2.2); ALKALINE PHOSPHATASE 83 IU/L (42-121); ALT ALANINE AMINOTRANSFERASE 26 IU/L (10-60); AST ASPARTATE AMINOTRANSFERASE 20 IU/L (10-42); BILIRUBIN,TOTAL 0.9 mg/dL (0.2-1.0); BUN - BLOOD UREA NITROGEN 21 mg/dL (6-20); CALCIUM 9.2 mg/dL (8.5-10.3); CARBON DIOXIDE - CO2 25 mmol/L (21-32); CHLORIDE 110 mmol/L (101-111); CHOL/HDL RATIO 8.2 (<5.0); CHOLESTEROL 320 mg/dL; GFR - MDRD 75 (>89); GLUCOSE 111 mg/dL (70-100); HDL CHOLESTEROL 39 mg/dL; LDL CHOLESTEROL,CALCULATED 213 mg/dL; LDL/HDL RATIO 5.5 (<3.6); POTASSIUM 4.5 mmol/L (3.5-5.0); SODIUM 141 mmol/L (135-145); TOTAL PROTEIN 7.1 g/dL (6.7-8.2); TRIGLYCERIDES 338 mg/dL; VLDL CHOLESTEROL 68 mg/dL
[2022-08-31 20:23] LABS: THYROID STIMULATING HORMONE 1.49 uIU/mL (0.34-5.60)
== END 2022-08-31 12:59 | disposition home or self-care (01) ==
LOC: LAB.S 12:58
PROVIDERS: ATTEND Registered Nurse
DX: E78.5 Hyperlipidemia, unspecified (principal); Z79.899 Other long term (current) drug therapy; Z79.01 Long term (current) use of anticoagulants; Z12.5 Encounter for screening for malignant neoplasm of prostate
CPT/HCPCS: 36415; 80053; 80061; 83721; 84153; 84443; 85025

== ENCOUNTER 2023-02-08 12:56 | Outpatient (CLI) | payer BC | END 2023-02-08 12:57 | disposition home or self-care (01) | LOC: LAB.S 12:56 | PROVIDERS: ATTEND Registered Nurse | DX: Z79.01 Long term (current) use of anticoagulants (principal); I74.3 Embolism and thrombosis of arteries of the lower extremities | CPT/HCPCS: 36416; 85610 ==

== ENCOUNTER 2023-02-28 07:43 | Day surgery (SDC) | payer BC ==
[~2023-02-28 07:43] MED LIST: ceFAZolin 2 GM VIAL ONE
[2023-02-28] MEDS ORDERED: LACTATED RINGERS 1,000 ML IV ONE ×3 (07:55→10:11)
[2023-02-28] MEDS ORDERED: MORPHINE 2 MG/ML CARPUJECT IVP PRN (08:45)
[2023-02-28] MEDS ORDERED: ATROPINE ABBOJECT 1 MG/10 ML SYRINGE IVP PRN (08:45)
[2023-02-28] MEDS ORDERED: ONDANSETRON 4 MG/2 ML VIAL IVP PRN ×2 (08:45→09:55)
[2023-02-28] MEDS ORDERED: METOCLOPRAMIDE 10 MG/2 ML VIAL IVP PRN (08:45)
[2023-02-28] MEDS ORDERED: fentaNYL 100 MCG/2 ML VIAL IVP PRN (08:45)
[2023-02-28] MEDS ORDERED: ePHEDrine 50 MG/ML VIAL IVP PRN (08:45)
[2023-02-28] MEDS ORDERED: NALOXONE 0.4 MG/ML VIAL IVP PRN (08:45)
[2023-02-28] MEDS ORDERED: HYDROmorphone 0.5 MG/0.5 ML SYRINGE IVP PRN (08:45)
--- NOTE | 2023-02-28 08:45 | ANESTHESIA ---
Pre-Anesthesia VS, & Labs - Diagnosis bladder CA - Procedure TURBT Height: 5 ft 11 in Weight (kg): 89.36 kg Body Mass Index: 27.4 BMI Classification: Overweight - NPO >8 hours Home Medications and Allergies Atorvastatin Calcium [Lipitor] 40 mg DAILY 11/07/15 Amitriptyline [Elavil] 10 mg PO UD 08/30/22 Aspirin [Aspirin Regimen] 81 mg PO UD 08/30/22 Ibuprofen 400 mg PO UD 08/30/22 Warfarin [Coumadin] 7.5 mg PO UD 08/30/22 Allergies/Adverse Reactions: Allergies Allergy/AdvReac Type Severity Reaction Status Date / Time No Known Drug Allergies Allergy Verified 02/28/23 08:17 Anes History & Medical History - Anesthetic History Anesthesia Complications: reports: No previous complications Family history of Anesthesia Complications: Denies Family history of Malignant Hyperthermia: Denies - Medical History Cardiovascular: reports: High cholesterol, Murmur, Other Pulmonary: reports: None Gastrointestinal: reports: None Urinary: reports: Other Neuro: reports: None Musculoskeletal: reports: Chronic back pain Endocrine/Autoimmune: reports: None Skin: reports: None Smoking Status: Current every day smoker Psychosocial: reports: Alcohol, Cannabis History of Cancer?: Yes - Surgical History General: reports: Colonoscopy Plan Anesthesia Type: General Consent for Procedure(s) Verified and Reviewed: Yes Code Status: Attempt Resuscitation ASA classification: 3-Severe systemic disease Is this case an emergency?: No
[2023-02-28] MEDS ORDERED: LACTATED RINGERS 1,000 ML IV SCH (09:00)
[2023-02-28] MEDS ORDERED: ONDANSETRON 4 MG/2 ML VIAL ONE (09:04)
[2023-02-28] MEDS ORDERED: PROPOFOL 500 MG/50 ML 500 MG/50 ML VIAL ONE (09:04)
[2023-02-28] MEDS ORDERED: DEXAMETHASONE 4 MG/ML VIAL ONE (09:04)
[2023-02-28] MEDS ORDERED: fentaNYL 100 MCG/2 ML VIAL ONE (09:05)
[2023-02-28] MEDS ORDERED: LIDOCAINE 2% URO-JET 5 ML SYRINGE UR ONE ×2 (09:34→09:37)
[2023-02-28] MEDS ORDERED: ePHEDrine 50 MG/ML VIAL IVP ONE (09:38)
[2023-02-28] MEDS ORDERED: PHENYLEPHRINE HCL 0.5 MG/5 ML AMPULE ONE (09:41)
[2023-02-28] MEDS ORDERED: KETOROLAC 30 MG/ML VIAL ONE (09:54)
[2023-02-28] MEDS ORDERED: HYDROcod/ACETAM 5/325 MG TABLET PO PRN (09:55)
--- NOTE | 2023-02-28 10:00 | Discharge Plan ---
Discharge Plan Problem Reviewed?: Yes Disposition: Home, Self Care Prescriptions: Docusate Sodium 100Mg Capsule [Colace 100Mg Capsule] 100 mg PO DAILY #14 cap HYDROcod/ACETAM 5/325 [[place] 5/325] 1 tab PO Q4H PRN #10 tablet PRN Reason: Pain Diet: Cardiac Activity Restrictions: no strenous activity 2W Shower Restrictions: No Driving Restrictions: No Additional Instructions or Follow Up instructions: Call for fever >100.4 No Smoking: If you smoke, Please STOP! Call for help. Follow-up with: Michelle Healy ARNP [Primary Care Provider] -
--- NOTE | 2023-02-28 10:03 | OPERATIVE REPORT ---
Operative Report - General Procedure Date: 02/28/23 Planned Procedure: Transurethral resection of bladder tumor Pre-Op Diagnosis: Bladder cancer Procedure Performed: Transurethral resection of bladder tumor Post Op Diagnosis: Bladder cancer - Procedure Note Primary Surgeon: Yobany Anesthesia Provider: MAYA Geronimo Anesthesia Technique: General LMA Pathology: bladder tumor Estimated Blood Loss (mL): 1 Indications: history of bladder cancer, noted recurrence on cystoscopy Findings: 7 small papillary recurrences on dome of bladder which were fulgurated A few tiny papillary recurrences near right bladder neck and right lateral wall. Carpet of tumors just lateral and posterior to the left hemitrigone, 2cm in size Left UO not seen with confidence Complications: none - Other Other Information/Narrative: After informed consent was obtained the patient was brought to the OR and laid in the supine position. The patient was then anesthetized per anesthesia protocols, he was placed in dorsal lithotomy position, he was prepped and draped in the usual sterile fashion. A formal timeout was performed reconfirming the patient and procedure. A [facility] resectoscope was advanced easily into the urinary bladder. He had no urethral abnormalities his prostate was minimally obstructing. Inspecting the bladder, we could see his right UO and right hemitrigone appeared normal. His left hemitrigone and just lateral to this did appear to have scar tissue that was previously operated on. More posterior to this area was a 2 cm patch of papillary tumors. There were a few tiny papillary tumors visualized at the right bladder neck and the right side of the bladder. At the dome of the bladder there were 7 papillary tumors that were very small. Using loop electrocautery the 2 cm patch of tumor was resected and sent for analysis. The papillary tumors otherwise were quite small and so were fulgurated. Spot cautery was used on any area requiring hemostasis. Any suspicious mucosal abnormality was fulgurated. The left UO was not definitively seen however, there were a few candidates that were not fulgurated. I do not think his UO was involved. After careful inspection it appeared that all lesions were dealt with. We elected to conclude the procedure at that point. His bladder was emptied and a Uro-Jet was placed. This concluded the procedure. The patient was reversed from anesthesia and brought to the PACU without further incident. The surgical counts were correct. He will be seen in follow-up next week to discuss next options, I suspect he will require intravesical bladder therapy.
[2023-02-28 10:47] VITALS: O2SAT 97
[2023-02-28 11:05] VITALS: BP 137/89
--- NOTE | 2023-02-28 12:53 | ANESTHESIA POST OP EVALUATION ---
Anesthesia Post Eval - Post Anesthesia Eval Vitals: Last Vital Signs Temp 36 C L 02/28/23 10:55 Pulse 80 02/28/23 10:55 Resp 16 02/28/23 10:55 BP 137/89 H 02/28/23 10:55 Pulse Ox 97 02/28/23 10:55 O2 Flow Rate CV Function Including HR & BP: Stable Pain Control: Satisfactory Nausea & Vomiting: Negative Mental Status: Baseline Respiratory Status: Airway Patent Hydration Status: Satisfactory Anesthesia Complications: None
== END 2023-02-28 07:44 | disposition home or self-care (01) ==
LOC: SDS 07:43
PROVIDERS: ATTEND Urology
PROC: 0TBB8ZZ Excision of Bladder, Via Natural or Artificial Opening Endoscopic (ICD-10-PCS; principal; 2023-02-28 09:00)
DX: C67.2 Malignant neoplasm of lateral wall of bladder (principal); C67.1 Malignant neoplasm of dome of bladder; C67.5 Malignant neoplasm of bladder neck; Z79.01 Long term (current) use of anticoagulants; F17.200 Nicotine dependence, unspecified, uncomplicated
CPT/HCPCS: 52235; J2372; J7120

== ENCOUNTER 2023-03-25 11:42 | Outpatient (CLI) | payer BC ==
[2023-03-25 12:32] LABS: CREATININE 1.1 mg/dL (0.6-1.3)
[2023-03-25] MEDS ORDERED: iohexoL-300 100 ML VIAL IVP ONE (12:53)
--- NOTE | 2023-03-25 16:49 | CT Report ---
PROCEDURE: IVP INDICATIONS: BLADDER CA CONTRAST: 140ml omni 300 TECHNIQUE: After the administration of intravenous contrast, 5 mm thick sections acquired from the diaphragms to the symphysis. 5 mm thick coronal and sagittal reformats were acquired. For radiation dose reducti on, the following was used: automated exposure control, adjustment of mA and/or kV according to noman ent size. COMPARISON: CT IVP on June 10, 2022. CT abdomen and pelvis on July 07, 2022.. FINDINGS: Image quality: Excellent. Kidneys: Both kidneys are normal in size. No hydronephrosis or nephrolithiasis on pre-contrast image s. Subcentimeter cortical hypodensities bilaterally which are too small to characterize, statistical ly cysts. The opacified renal calyces and ureters appear normal, without filling defect. Bladder: Evaluation of the bladder is limited secondary to under distention. Compared to CT dated Jun, previously seen mass at the left ureteral orifice is not well seen. New asymmetric wall t hickening/soft tissue enhancement in the left anterolateral bladder wall measuring 3.4 x 1 cm (6/78, 864, ). No calcified bladder stones. OTHER: Lung bases and heart: No suspicious pulmonary nodule or consolidation. No basilar effusion. Liver: No solid mass. Gallbladder and biliary tree: No radiopaque stones or wall thickening. No biliary dilation. Spleen: No splenomegaly. Pancreas: Calcifications in the pancreatic head. No pancreatic ductal dilation. Adrenals: No adrenal nodule. Bowel and peritoneum: Stomach is decompressed, limiting evaluation, but appears grossly normal. Small and large bowel is normal in caliber, without obstruction. Normal appendix (). A few scattered s igmoid and colonic diverticulosis, without diverticulitis. No pneumatosis, pneumoperitoneum or portal venous gas. Abdominal Lymph nodes: No central or retroperitoneal adenopathy. Vessels: Moderate to marked calcified and noncalcified plaque of the abdominal aorta and branch vesse ls without aneurysm. Abdominal aorta measures 2.5 x 2.4 cm. Patent hepatic, portal, splenic and bilat eral renal veins. Abdominal wall: Tiny fat-containing umbilical hernia. Small fat-containing right inguinal hernia. Reproductive organs: Mild prostatomegaly. Pelvic Lymph nodes: Unremarkable. Bones: No acute fractures. No aggressive appearing lytic or blastic osseous lesions. IMPRESSION: 1.Compared to CT dated July 07, 2022, previously seen mass at the left ureteral orifice consistent wi th bladder neoplasm is not well seen. New asymmetric wall thickening/soft tissue enhancement in the l eft anterolateral bladder wall measuring 3.4 x 1 cm is suspicious for malignancy versus posttreatmen t change. Consider direct visualization for further evaluation. 2.No adenopathy or extravesical metastatic disease. 3.Calcifications in the pancreatic head, likely sequela of remote infection or inflammation. Reviewed by: Mery Dwyer MD on 03/25/2023 4:48 PM PST Approved by: Mery Dwyer MD on 03/25/2023 4:48 PM PST Station ID: [id number]
== END 2023-03-25 11:43 | disposition home or self-care (01) ==
LOC: LAB 11:42
PROVIDERS: ATTEND Urology
DX: C67.9 Malignant neoplasm of bladder, unspecified (principal); N32.89 Other specified disorders of bladder
CPT/HCPCS: 36415; 74178; 82565; Q9967

== ENCOUNTER 2023-06-27 08:04 | Day surgery (SDC) | payer BC ==
[2023-06-27] MEDS: LACTATED RINGERS 1,000 ML IV ONE ×2 (08:12→11:12)
--- NOTE | 2023-06-27 09:25 | ANESTHESIA ---
Pre-Anesthesia VS, & Labs - Diagnosis bladder cancer - Procedure TURBT Vital Signs: Temp Pulse Resp BP Pulse Ox O2 Flow Rate 36.1 C L 87 18 142/88 H 97 06/27/23 08:17 06/27/23 08:17 06/27/23 08:17 06/27/23 08:17 06/27/23 08:17 Height: 5 ft 11 in Weight (kg): 91.6 kg Body Mass Index: 28.1 BMI Classification: Overweight - NPO >8 hours Home Medications and Allergies Atorvastatin Calcium [Lipitor] 80 mg PO DAILY 11/07/15 Amitriptyline [Elavil] 10 mg PO DAILY 08/30/22 Aspirin [Aspirin Regimen] 81 mg PO DAILY 08/30/22 Warfarin [Coumadin] 7.5 - 10 mg PO DAILY 08/30/22 Allergies/Adverse Reactions: Allergies Allergy/AdvReac Type Severity Reaction Status Date / Time No Known Drug Allergies Allergy Verified 06/27/23 08:47 Anes History & Medical History - Anesthetic History Anesthesia Complications: reports: No previous complications - Medical History Cardiovascular: reports: High cholesterol, Murmur, Other Pulmonary: reports: None Gastrointestinal: reports: Other Urinary: reports: Other Neuro: reports: None Musculoskeletal: reports: None Endocrine/Autoimmune: reports: None Skin: reports: None Smoking Status: Current every day smoker History of Cancer?: Yes (bladder ) - Surgical History General: reports: Colonoscopy Urologic: reports: Bladder surgery Exam General: Alert, Oriented x3, Cooperative Dental: WNL Mouth Opening: Greater than 4 Fingerbreadths Neck Mobility: Normal Mallampati classification: II Thyromental Distance: greater than 6 cm Respiratory: Lungs clear Cardiovascular: Regular rate, Normal S1, Normal S2 Plan Anesthesia Type: General Consent for Procedure(s) Verified and Reviewed: Yes Code Status: Attempt Resuscitation ASA classification: 3-Severe systemic disease Is this case an emergency?: No
[2023-06-27] MEDS ORDERED: PROPOFOL 200 MG/20 ML VIAL IVP ONE ×2 (09:44→13:11)
[2023-06-27] MEDS ORDERED: MIDAZOLAM 2 MG/2 ML VIAL ONE (09:44)
[2023-06-27] MEDS ORDERED: ROCURONIUM 50 MG/5 ML VIAL ONE (09:44)
[2023-06-27] MEDS ORDERED: fentaNYL 100 MCG/2 ML VIAL ONE (09:44)
[2023-06-27] MEDS ORDERED: LIDOCAINE-PF 2% 10 ML AMP SUBQ ONE (09:50)
[2023-06-27] MEDS ORDERED: ceFAZolin 2 GM VIAL ONE (10:10)
[2023-06-27] MEDS ORDERED: PHENYLEPHRINE HCL 0.5 MG/5 ML AMPULE ONE (10:35)
[2023-06-27] MEDS ORDERED: ePHEDrine 50 MG/ML VIAL IVP ONE (10:40)
[2023-06-27] MEDS ORDERED: SUGAMMADEX 200 MG/2 ML VIAL IVP ONE (10:53)
[2023-06-27] MEDS ORDERED: DEXAMETHASONE 4 MG/ML VIAL ONE (10:53)
[2023-06-27] MEDS ORDERED: ONDANSETRON 4 MG/2 ML VIAL ONE (10:53)
[2023-06-27] MEDS ORDERED: HYDROcod/ACETAM 5/325 MG TABLET PO PRN (11:12)
[2023-06-27] MEDS ORDERED: ONDANSETRON 4 MG/2 ML VIAL IVP PRN ×2 (11:12→11:39)
--- NOTE | 2023-06-27 11:22 | Discharge Plan ---
Discharge Plan Problem Reviewed?: Yes Disposition: Home, Self Care Condition: Good Prescriptions: Docusate Sodium 100Mg Capsule [Colace 100Mg Capsule] 100 mg PO DAILY #7 cap oxyBUTYnin chloride [Oxybutynin Chloride ER] 5 mg PO DAILY PRN #7 tab PRN Reason: Bladder Spasms oxyCODONE [Roxicodone] 5 mg PO Q4H PRN #10 tablet PRN Reason: Pain Diet: Regular Activity Restrictions: Additional Comments (as instructed) Shower Restrictions: No Driving Restrictions: No (No driving while taking pain medications) Instruction Topics: Cancer Bladder TUR, Askew Catheter Remove Additional Instructions or Follow Up instructions: Remove Askew catheter as instructed on the morning of for every No Smoking: If you smoke, Please STOP! Call for help. Follow-up with: Eddie Haywood MD [Provider Admit Priv/Credential] -
--- NOTE | 2023-06-27 11:27 | OPERATIVE REPORT ---
Operative Report - General Procedure Date: 06/27/23 Planned Procedure: Cystoscopy, transurethral resection of bladder tumor Pre-Op Diagnosis: Bladder cancer Procedure Performed: Cystoscopy, transurethral resection of bladder tumor and fulguration of tumors Post Op Diagnosis: Bladder cancer - Procedure Note Primary Surgeon: Yobany Anesthesia Provider: MAYA Chawla Anesthesia Technique: General ET tube Pathology: bladder tumors Estimated Blood Loss (mL): 1 Findings: Many papillary bladder lesions. About 30 in total. Masses ranging in size from 2 mm papillary superficial lesions to about 1 cm size lesion. Lesions scattered throughout bladder. Ureteral orifices orthotopic and uninvolved. 1 cm lesion at anterior left bladder neck 22 [place] three-way Askew catheter placed Complications: none - Other Other Information/Narrative: After informed consent was obtained the patient was brought to the OR and laid in the supine position. The patient was anesthetized per anesthesia protocols and prepped and draped in usual sterile fashion in the dorsolithotomy position. A formal timeout was performed reconfirming the patient and procedure. A 26 [place] resectoscope was advanced easily into urinary bladder. He was noted to have many bladder lesions these all appeared papillary in nature. They range in size from 2 to [address] up to about 1 cm. The largest lesions were at the bladder neck at the left anterior which was 1 cm, and there was a 1 cm left anterior bladder wall lesion. These were resected using loop electrocautery and the bipolar setting. Any lesion 5 mm or above were resected. This led to about 10 resections at the dome and posterior bladder wall. These lesions were sent for analysis. The smaller lesions which were 2 or 3 mm in size were fulgurated. These lesions extended from the right lateral wall to the left lateral wall there was only 1 lesion on the trigone. The ureteral orifices were identified and they were orthotopic and they were not involved. Fulguration was used at all these areas for hemostasis. His bladder was irrigated in and out multiple times with saline to evaluate for bleeding. There appeared to be no bleeding. A 22 [place] three-way Askew catheter was placed and he was placed on gentle continuous bladder irrigation. The patient was reversed from anesthesia and brought to PACU without further incident. All counts were correct. He will follow-up with me in 2 weeks time for pathology discussion. We will plan for bladder irrigations soon
[2023-06-27] MEDS ORDERED: METOCLOPRAMIDE 10 MG/2 ML VIAL IVP PRN (11:39)
[2023-06-27] MEDS ORDERED: ePHEDrine 50 MG/ML VIAL IVP PRN (11:39)
[2023-06-27] MEDS ORDERED: MORPHINE 2 MG/ML CARPUJECT IVP PRN (11:39)
[2023-06-27] MEDS ORDERED: HYDROmorphone 0.5 MG/0.5 ML SYRINGE IVP PRN (11:39)
[2023-06-27] MEDS ORDERED: fentaNYL 100 MCG/2 ML VIAL IVP PRN (11:39)
[2023-06-27] MEDS ORDERED: NALOXONE 0.4 MG/ML VIAL IVP PRN (11:39)
[2023-06-27] MEDS ORDERED: ATROPINE ABBOJECT 1 MG/10 ML SYRINGE IVP PRN (11:39)
[2023-06-27] MEDS ORDERED: LACTATED RINGERS 1,000 ML IV SCH (12:00)
[2023-06-27 12:16] VITALS: BP 130/96; O2SAT 98
--- NOTE | 2023-06-27 15:14 | ANESTHESIA POST OP EVALUATION ---
Anesthesia Post Eval - Post Anesthesia Eval Vitals: Last Vital Signs Temp 36.2 C L 06/27/23 12:13 Pulse 73 06/27/23 12:13 Resp 18 06/27/23 12:13 BP 130/96 H 06/27/23 12:13 Pulse Ox 98 06/27/23 12:13 O2 Flow Rate CV Function Including HR & BP: Stable Pain Control: Satisfactory Nausea & Vomiting: Negative Mental Status: Baseline Respiratory Status: Airway Patent Hydration Status: Satisfactory Anesthesia Complications: None
== END 2023-06-27 08:05 | disposition home or self-care (01) ==
LOC: SDS 08:04
PROVIDERS: ATTEND Urology
PROC: 0TBB8ZZ Excision of Bladder, Via Natural or Artificial Opening Endoscopic (ICD-10-PCS; principal; 2023-06-27 09:15)
DX: C67.9 Malignant neoplasm of bladder, unspecified (principal); Z79.01 Long term (current) use of anticoagulants; Z79.82 Long term (current) use of aspirin; E78.5 Hyperlipidemia, unspecified; F17.290 Nicotine dependence, other tobacco product, uncomplicated
CPT/HCPCS: 52234; J2372; J7120

== ENCOUNTER 2023-08-18 10:19 | Outpatient (CLI) | payer BC ==
[2023-08-18 14:21] LABS: BASOPHILS # (AUTO) 0.1 10^3/uL (0.0-0.1); BASOPHILS % (AUTO) 1.1 %; EOSINOPHILS # (AUTO) 0.2 10^3/uL (0.0-0.7); EOSINOPHILS % (AUTO) 3.6 %; HCT - HEMATOCRIT 46.8 % (42.0-52.0); HGB - HEMOGLOBIN 15.5 g/dL (14.0-18.0); LYMPHOCYTES # (AUTO) 2.3 10^3/uL (1.5-3.5); LYMPHOCYTES % (AUTO) 34.9 %; MEAN CORPUSCULAR HEMOGLOBIN 30.4 pg (27.0-31.0); MEAN CORPUSCULAR HGB CONC 33.1 g/dL (32.0-36.0); MEAN CORPUSCULAR VOLUME 91.8 fL (80.0-94.0); MEAN PLATELET VOLUME 8.5 fL (7.4-11.4); MONOCYTES # (AUTO) 0.7 10^3/uL (0.0-1.0); MONOCYTES % (AUTO) 9.8 %; NEUTROPHILS # (AUTO) 3.4 10^3/uL (1.5-6.6); NEUTROPHILS % (AUTO) 50.4 %; PLT - PLATELET COUNT 229 10^3/uL (130-450); RED CELL DISTRIBUTION WIDTH 14.5 % (12.0-15.0); WHITE BLOOD COUNT 6.7 x10^3/uL (4.8-10.8)
[2023-08-18 14:45] LABS: ALBUMIN 3.8 g/dL (3.2-5.5); ALBUMIN/GLOBULIN RATIO 1.5 (1.0-2.2); ALKALINE PHOSPHATASE 90 IU/L (42-121); ALT ALANINE AMINOTRANSFERASE 30 IU/L (10-60); AST ASPARTATE AMINOTRANSFERASE 21 IU/L (10-42); BILIRUBIN,TOTAL 0.8 mg/dL (0.2-1.0); BUN - BLOOD UREA NITROGEN 22 mg/dL (6-20); CALCIUM 9.3 mg/dL (8.5-10.3); CARBON DIOXIDE - CO2 26 mmol/L (21-32); CHLORIDE 108 mmol/L (101-111); CHOL/HDL RATIO 4.3 (<5.0); CHOLESTEROL 156 mg/dL; CREATININE 1.1 mg/dL (0.6-1.3); GFR - MDRD 67 (>89); GLUCOSE 144 mg/dL (74-104); HDL CHOLESTEROL 36 mg/dL; LDL CHOLESTEROL,CALCULATED 71 mg/dL; SODIUM 137 mmol/L (135-145); TOTAL PROTEIN 6.4 g/dL (6.4-8.9); TRIGLYCERIDES 244 mg/dL (48-352); VLDL CHOLESTEROL 49 mg/dL
[2023-08-18 14:53] LABS: THYROID STIMULATING HORMONE 1.81 uIU/mL (0.34-5.60)
== END 2023-08-18 10:20 | disposition home or self-care (01) ==
LOC: LAB.S 10:19
PROVIDERS: ATTEND Registered Nurse
DX: Z13.228 Encounter for screening for other metabolic disorders (principal); Z13.220 Encounter for screening for lipoid disorders; Z13.29 Encounter for screening for other suspected endocrine disorder; Z13.0 Encounter for screening for diseases of the blood and blood-forming organs and certain disorders involving the immune mechanism
CPT/HCPCS: 36415; 80053; 80061; 83721; 84443; 85025

== ENCOUNTER 2023-10-14 14:40 | Outpatient (CLI) | payer MEDICARE ==
[2023-10-14 15:28] LABS: CREATININE 0.9 mg/dL (0.6-1.3)
[2023-10-14] MEDS ORDERED: iohexoL-300 150 ML BOTTLE ONE (15:38)
[2023-10-14] MEDS ORDERED: iohexoL-300 100 ML VIAL ONE (15:44)
[2023-10-14] MEDS: iohexoL-300 150 ML BOTTLE IVP ONE (16:01)
--- NOTE | 2023-10-14 18:11 | CT Report ---
PROCEDURE: IVP INDICATIONS: BLADDER CA CONTRAST: 140ml omni 300 TECHNIQUE: A [address] of the abdomen and pelvis was performed. Non-contrast and contrast images were recorded and evaluated at appropriate window settings. Images were recorded and evaluated at appropriate windo w settings. Reformats: coronal and sagittal. For radiation dose reduction, the following was used: au tomated exposure control, adjustment of mA and/or kV according to patient size. COMPARISON: 03/25/2023 FINDINGS: Image quality: Diagnostic. Lower chest: Unremarkable. Liver: No suspicious mass. Gallbladder: Trace hyperdense material layering dependently. No wall thickening. Biliary tree: No intrahepatic or extrahepatic dilation, accounting for age. Spleen: No splenomegaly. Pancreas: Coarse calcifications in the head and uncinate process of the pancreas. No ductal dilatatio n. Adrenals: No adrenal nodule. Kidneys and ureters: Both kidneys are normal in size. No hydronephrosis or nephrolithiasis on pre-con trast images. No solid masses or complex cysts which require follow up. The opacified renal calyces and ureters appear normal, without filling defect. Stomach, bowel and peritoneum: No bowel distension. No pathologic free fluid. Stomach and small bowel are normal. Normal appendix. Mild descending colon diverticulosis. Abdominal Lymph nodes: No central or retroperitoneal adenopathy. Vessels: Mild abdominal aortic ectasia. Moderate calcified and noncalcified circumferential plaque. N ormal caliber IVC and portal vein. . Reproductive organs: Mild prostatomegaly. Bladder: Small amount of antidependent air is present in the urinary bladder. Decreased left anterola teral wall thickening. Minor perivesicular inflammation, presumably treatment change. No calcified bl adder stones. Pelvic Lymph nodes: Unremarkable. Bones: No aggressive osseous abnormality. Other: None. IMPRESSION: Improved appearance of the urinary bladder wall thickening with probable residual treatment changes p resent. Normal-appearing kidneys and ureters. Changes of chronic pancreatitis . Trace cholelithiasis. Reviewed by: Raegan Ramírez MD on 10/14/2023 6:10 PM PDT Approved by: Raegan Ramírez MD on 10/14/2023 6:10 PM PDT Station ID: [id number]
== END 2023-10-14 14:41 | disposition home or self-care (01) ==
LOC: DI 14:40
PROVIDERS: ATTEND Urology
DX: C67.9 Malignant neoplasm of bladder, unspecified (principal); K86.1 Other chronic pancreatitis; K80.20 Calculus of gallbladder without cholecystitis without obstruction
CPT/HCPCS: 36415; 82565

== ENCOUNTER 2023-10-17 12:24 | Day surgery (SDC) | payer MEDICARE ==
[2023-10-17] MEDS ORDERED: ceFAZolin 2 GM VIAL ONE (12:29)
[2023-10-17] MEDS: LACTATED RINGERS 1,000 ML IV ONE ×3 (12:32→16:00)
[2023-10-17] MEDS ORDERED: fentaNYL 100 MCG/2 ML VIAL ONE (13:27)
--- NOTE | 2023-10-17 14:23 | ANESTHESIA ---
Pre-Anesthesia VS, & Labs - Diagnosis bladder cancer - Procedure TURBT Height: 5 ft 11 in Weight (kg): 87.5 kg Body Mass Index: 26.9 BMI Classification: Overweight - NPO >8 hours Home Medications and Allergies Home Medications: Ambulatory Orders metFORMIN [Glucophage] 1,000 mg ORAL DAILY 10/17/23 Atorvastatin Calcium [Lipitor] 80 mg PO DAILY 11/07/15 Aspirin [Aspirin Regimen] 81 mg PO DAILY 08/30/22 Warfarin [Coumadin] 7.5 - 10 mg PO DAILY 08/30/22 metFORMIN [Glucophage] 1,000 mg ORAL DAILY 10/17/23 Allergies/Adverse Reactions: Allergies Allergy/AdvReac Type Severity Reaction Status Date / Time No Known Drug Allergies Allergy Verified 06/27/23 08:47 Anes History & Medical History - Anesthetic History Anesthesia Complications: reports: No previous complications - Medical History Cardiovascular: reports: High cholesterol, Peripheral Vascular Disease (femoral artery thrombosis) Pulmonary: reports: None Gastrointestinal: reports: None Urinary: reports: Incontinence Neuro: reports: None Musculoskeletal: reports: None Endocrine/Autoimmune: reports: None Skin: reports: None Smoking Status: Current every day smoker Psychosocial: reports: No issues indicated History of Cancer?: Yes (chemotherapy) - Surgical History General: reports: Colonoscopy Cardiothoracic: reports: Angioplasty Urologic: reports: Bladder surgery Exam General: Alert, Oriented x3, Cooperative, No acute distress Dental: Dentures full Upper, Other (implants lower) Mouth Openin Fingerbreadth Neck Mobility: Normal Mallampati classification: III Thyromental Distance: 4-6 cm Mental/Cognitive Status: Alert/Oriented X3, Normal for patient Plan Anesthesia Type: General Consent for Procedure(s) Verified and Reviewed: Yes Code Status: Attempt Resuscitation ASA classification: 3-Severe systemic disease Is this case an emergency?: No
[2023-10-17] MEDS ORDERED: fentaNYL 100 MCG/2 ML VIAL IVP PRN (14:27)
[2023-10-17] MEDS ORDERED: ONDANSETRON 4 MG/2 ML VIAL IVP PRN ×2 (14:27→15:16)
[2023-10-17] MEDS ORDERED: ATROPINE ABBOJECT 1 MG/10 ML SYRINGE IVP PRN (14:27)
[2023-10-17] MEDS ORDERED: MORPHINE 2 MG/ML CARPUJECT IVP PRN (14:27)
[2023-10-17] MEDS ORDERED: NALOXONE 0.4 MG/ML VIAL IVP PRN (14:27)
[2023-10-17] MEDS ORDERED: HYDROmorphone 0.5 MG/0.5 ML SYRINGE IVP PRN (14:27)
[2023-10-17] MEDS ORDERED: PROPOFOL 200 MG/20 ML VIAL IVP ONE (14:29)
--- NOTE | 2023-10-17 14:29 | ANESTHESIA ---
Pre-Anesthesia VS, & Labs - Diagnosis bladder cancer Height: 5 ft 11 in Weight (kg): 87.5 kg Body Mass Index: 26.9 BMI Classification: Overweight Home Medications and Allergies Home Medications: Ambulatory Orders metFORMIN [Glucophage] 1,000 mg ORAL DAILY 10/17/23 Atorvastatin Calcium [Lipitor] 80 mg PO DAILY 11/07/15 Aspirin [Aspirin Regimen] 81 mg PO DAILY 08/30/22 Warfarin [Coumadin] 7.5 - 10 mg PO DAILY 08/30/22 metFORMIN [Glucophage] 1,000 mg ORAL DAILY 10/17/23 Allergies/Adverse Reactions: Allergies Allergy/AdvReac Type Severity Reaction Status Date / Time No Known Drug Allergies Allergy Verified 06/27/23 08:47 Anes History & Medical History - Medical History Cardiovascular: reports: High cholesterol Pulmonary: reports: None Gastrointestinal: reports: None Urinary: reports: Incontinence Neuro: reports: None Musculoskeletal: reports: None Endocrine/Autoimmune: reports: None Skin: reports: None Smoking Status: Current every day smoker - Surgical History General: reports: Colonoscopy Cardiothoracic: reports: Angioplasty Urologic: reports: Bladder surgery
[2023-10-17] MEDS ORDERED: ROCURONIUM 50 MG/5 ML VIAL ONE (14:30)
[2023-10-17] MEDS ORDERED: MIDAZOLAM 2 MG/2 ML VIAL ONE (14:30)
[2023-10-17] MEDS ORDERED: DEXAMETHASONE 4 MG/ML VIAL ONE (14:52)
[2023-10-17] MEDS ORDERED: SUGAMMADEX 200 MG/2 ML VIAL IVP ONE (14:56)
[2023-10-17] MEDS ORDERED: ONDANSETRON 4 MG/2 ML VIAL ONE (14:59)
[2023-10-17] MEDS ORDERED: LACTATED RINGERS 1,000 ML IV SCH (15:00)
[2023-10-17] MEDS ORDERED: LIDOCAINE 2% URO-JET 5 ML SYRINGE UR ONE (15:01)
[2023-10-17] MEDS: LIDOCAINE 2% URO-JET 5 ML SYRINGE UR ONE (15:10)
[2023-10-17] MEDS ORDERED: HYDROcod/ACETAM 5/325 MG TABLET PO PRN (15:16)
--- NOTE | 2023-10-17 15:22 | Discharge Plan ---
Discharge Plan Problem Reviewed?: Yes Disposition: Home, Self Care Condition: Good Prescriptions: Docusate Sodium 100Mg Capsule [Colace 100Mg Capsule] 100 mg PO DAILY #7 cap oxyCODONE [Roxicodone] 5 mg PO Q4H PRN #10 tablet PRN Reason: Pain Activity Restrictions: Additional Comments (as instructed) Shower Restrictions: No Driving Restrictions: No Instruction Topics: Transureth Bladder Tumor Resect Dc, Leg Bag Care Dc Additional Instructions or Follow Up instructions: You have an appointment on October 20 at 8:30 AM. Please arrive 15 minutes early. Your catheter will be removed at this appointment No Smoking: If you smoke, Please STOP! Call for help. Follow-up with: Eddie Haywood MD [Provider Admit Priv/Credential] -
--- NOTE | 2023-10-17 15:26 | OPERATIVE REPORT ---
Operative Report - General Procedure Date: 10/17/23 Planned Procedure: Cystoscopy, transurethral resection of bladder tumor, mitomycin instillation Pre-Op Diagnosis: bladder cancer Procedure Performed: Cystoscopy, transurethral resection of bladder tumor 0.5cm, transurethral resection of prostate lesion, mitomycin instillation Post Op Diagnosis: bladder cancer and prostatic urethral lesion - Procedure Note Primary Surgeon: Yobany Anesthesia Provider: MAYA Banda Anesthesia Technique: General LMA Pathology: bladder biopsy prostatic urethral biopsy Estimated Blood Loss (mL): 0 Findings: 5 lesions seen in bladder, each about 0.3-0.5cm in size. Fulgurated. One lesion resected and sent for analysis Prostatic urethral 5mm lesion on left side Mitomycin instilled Complications: none - Other Other Information/Narrative: After informed sent was obtained the patient was brought to the OR and laid in the supine position. The patient was anesthetized per anesthesia protocols and prepped draped in usual sterile fashion. A formal timeout was performed reconfirming the patient, procedure and laterality. 26 [place] resectoscope was advanced easily into urinary bladder. As we passed the prostatic urethra out we saw a lesion about 5 mm in size on the left prostatic urethral mucosa. In the bladder we could see multiple old scars from his prior resection sites. His ureteral orifices were orthotopic in nature and uninvolved. We looked with both a 30 degree and 70 degree lens and saw 5 lesions total each about 3 mm to 5 mm in size. One was anterior relatively of the bladder neck there were a few on the posterior wall and 1 on the left lateral wall. Using loop electrocautery we fulgurated most these lesions as they appeared small and superficial. The lesion near the bladder neck we resected and sent for analysis. We then used resection to remove the prostatic urethral mass which was sent separately. Cautery was used for hemostasis. This appeared excellent. A 20 [place] Askew catheter was placed after a Uro-Jet. We then instilled into the bladder mitomycin which was 40 mg in 40 cc. We clamped the catheter at this point. This concluded procedure the patient tolerated procedure well. He will be brought to PACU that further incident. The mitomycin will be left for an hour and drain in the PACU. He will follow-up on for catheter removal and pathology discussion along with to plan BCG treatments. All counts were correct
--- NOTE | 2023-10-17 16:07 | ANESTHESIA POST OP EVALUATION ---
Anesthesia Post Eval - Post Anesthesia Eval Vitals: Last Vital Signs Temp 36.6 C 10/17/23 15:47 Pulse 68 10/17/23 16:00 Resp 16 10/17/23 16:00 BP 169/104 H 10/17/23 16:00 Pulse Ox 96 10/17/23 16:00 O2 Flow Rate CV Function Including HR & BP: Stable Pain Control: Satisfactory Nausea & Vomiting: Negative Mental Status: Baseline Respiratory Status: Airway Patent Hydration Status: Satisfactory Anesthesia Complications: None
[2023-10-17 16:21] VITALS: O2SAT 97
[2023-10-17 16:31] VITALS: BP 157/82
== END 2023-10-17 12:25 | disposition home or self-care (01) ==
LOC: SDS 12:24
PROVIDERS: ATTEND Urology
PROC: 0TBD8ZX Excision of Urethra, Via Natural or Artificial Opening Endoscopic, Diagnostic (ICD-10-PCS; 2023-10-17)
PROC: 0TBB8ZZ Excision of Bladder, Via Natural or Artificial Opening Endoscopic (ICD-10-PCS; principal; 2023-10-17 14:00)
DX: C67.9 Malignant neoplasm of bladder, unspecified (principal); N42.9 Disorder of prostate, unspecified; F17.200 Nicotine dependence, unspecified, uncomplicated; N40.0 Benign prostatic hyperplasia without lower urinary tract symptoms; E11.9 Type 2 diabetes mellitus without complications; Z79.84 Long term (current) use of oral hypoglycemic drugs
CPT/HCPCS: 51720; 52224; J7120; J9280

== ENCOUNTER 2023-10-25 08:00 | Outpatient (CLI) | payer MEDICARE | END 2023-10-25 23:59 | disposition home or self-care (01) | LOC: LAB.F 08:00 | PROVIDERS: ATTEND Registered Nurse | DX: I74.3 Embolism and thrombosis of arteries of the lower extremities (principal); Z79.01 Long term (current) use of anticoagulants ==

== ENCOUNTER 2023-11-09 08:00 | Outpatient (CLI) | payer MEDICARE | END 2023-11-09 23:59 | disposition home or self-care (01) | LOC: LAB 08:00 | PROVIDERS: ATTEND Urology | DX: R35.0 Frequency of micturition (principal) | CPT/HCPCS: 87086 ==

== ENCOUNTER 2023-11-15 08:00 | Outpatient (CLI) | payer MEDICARE | END 2023-11-15 23:59 | disposition home or self-care (01) | LOC: LAB.F 08:00 | PROVIDERS: ATTEND Registered Nurse | DX: I74.3 Embolism and thrombosis of arteries of the lower extremities (principal); Z79.01 Long term (current) use of anticoagulants ==

== ENCOUNTER 2023-12-05 13:20 | Outpatient (CLI) | payer MEDICARE ==
[2023-12-05 19:57] LABS: CALCIUM 9.5 mg/dL (8.5-10.3); POTASSIUM 4.8 mmol/L (3.5-4.5)
[2023-12-05 20:05] LABS: ESTIMATED AVERAGE GLUCOSE 140 mg/dL (70-100); HEMOGLOBIN A1c% 6.5 % (4.27-6.07)
== END 2023-12-05 13:21 | disposition home or self-care (01) ==
LOC: LAB.S 13:20
PROVIDERS: ATTEND Registered Nurse
DX: E11.9 Type 2 diabetes mellitus without complications (principal); E78.1 Pure hyperglyceridemia
CPT/HCPCS: 36415; 80048; 82043; 82570; 83036; 84478

== ENCOUNTER 2023-12-07 08:00 | Outpatient (CLI) | payer MEDICARE ==
[2023-12-07 17:08] LABS: CREATININE,URINE 143.5 mg/dL; MICROALBUM/CREATININE RATIO,UR 172.1 ug/mg (<30.0); MICROALBUMIN,URINE 24.7 mg/dL
== END 2023-12-07 23:59 | disposition home or self-care (01) ==
LOC: LAB 08:00
PROVIDERS: ATTEND Registered Nurse
DX: E11.9 Type 2 diabetes mellitus without complications (principal)
CPT/HCPCS: 82043; 82570

== ENCOUNTER 2023-12-20 08:00 | Outpatient (CLI) | payer MEDICARE | END 2023-12-20 23:59 | disposition home or self-care (01) | LOC: LAB.F 08:00 | PROVIDERS: ATTEND Registered Nurse | DX: I74.3 Embolism and thrombosis of arteries of the lower extremities (principal); Z79.01 Long term (current) use of anticoagulants ==

== ENCOUNTER 2024-01-03 08:00 | Outpatient (CLI) | payer MEDICARE | END 2024-01-03 23:59 | disposition home or self-care (01) | LOC: LAB.F 08:00 | PROVIDERS: ATTEND Registered Nurse | DX: I74.3 Embolism and thrombosis of arteries of the lower extremities (principal); Z79.01 Long term (current) use of anticoagulants ==

== ENCOUNTER 2024-01-05 08:00 | Outpatient (CLI) | payer MEDICARE | END 2024-01-05 23:59 | disposition home or self-care (01) | LOC: LAB.F 08:00 | PROVIDERS: ATTEND Registered Nurse | DX: I74.3 Embolism and thrombosis of arteries of the lower extremities (principal); Z79.01 Long term (current) use of anticoagulants ==

== ENCOUNTER 2024-01-12 08:00 | Outpatient (CLI) | payer MEDICARE | END 2024-01-12 23:59 | disposition home or self-care (01) | LOC: LAB.F 08:00 | PROVIDERS: ATTEND Registered Nurse | DX: I74.3 Embolism and thrombosis of arteries of the lower extremities (principal); Z79.01 Long term (current) use of anticoagulants ==

== ENCOUNTER 2024-01-17 08:00 | Outpatient (CLI) | payer MEDICARE | END 2024-01-17 23:59 | disposition home or self-care (01) | LOC: LAB.F 08:00 | PROVIDERS: ATTEND Registered Nurse | DX: I74.3 Embolism and thrombosis of arteries of the lower extremities (principal); Z79.01 Long term (current) use of anticoagulants ==